=== PATIENT | female | born 1945 | race Caucasian/White ===

== ENCOUNTER 2020-12-05 15:12 | Emergency (ER) | payer MEDICARE, MEDICAID ==
[2020-12-05] MEDS ORDERED: Metoprolol Tartrate 5 MG/5 ML SDV IVPUSH ONE ×3 (15:45→16:51)
--- NOTE | 2020-12-05 16:14 | EDM.PDOC ---
ED HPI GENERAL MEDICAL PROBLEM - General Chief Complaint: Cardiovascular Problem Stated Complaint: HEART PALPITATIONS Time Seen by Provider: 12/05/20 15:32 Source of Information: Reports: Patient, RN Notes Reviewed - History of Present Illness INITIAL COMMENTS - FREE TEXT/NARRATIVE: 75 yr old female comes in with palpitations, mild dizziness at rest and more so when standing. No chest pain or difficulty breathing. No abd pain, nausea or vomiting. Hx Htn. No hx of prior a fib. She does take topral 100 mg XL daily. She did take an extra half tab this afternoon about 5 hrs ago. - Related Data Allergies Allergy/AdvReac Type Severity Reaction Status Date / Time cefuroxime [From Ceftin] Allergy Severe Diarrhea Verified 12/05/20 15:32 Home Meds: Home Meds Albuterol Sulfate [Proair Hfa] 2 puff INH ASDIRECTED 12/05/20 [History] Citalopram Hydrobromide [Celexa] 20 mg PO DAILY 12/05/20 [History] Fluticasone/Salmeterol [Advair 100-50] 1 - 2 puff INH DAILY 12/05/20 [History] Levothyroxine 75 mcg PO DAILY 12/05/20 [History] Metoprolol Succinate [Toprol XL 100mg] 100 mg PO BID #60 tab.er 12/05/20 [Rx] Metoprolol Succinate [Toprol Xl] 100 mg PO DAILY 12/05/20 [History] Nortriptyline 25 mg PO BID 12/05/20 [History] Rivaroxaban [Xarelto] 20 mg PO PCDINNER #30 tablet 12/05/20 [Rx] Past Medical History Cardiovascular History: Reports: Arrhythmia, Other (See Below) Other Cardiovascular History: SVT Respiratory History: Reports: Asthma Gastrointestinal History: Reports: Other (See Below) Other Gastrointestinal History: spleenectomy Psychiatric History: Reports: Depression Endocrine/Metabolic History: Reports: Hypothyroidism - Past Surgical History Female Surgical History: Reports: Hysterectomy Social & Family History - Tobacco Use Tobacco Use Status *Q: Never Tobacco User ED ROS GENERAL - Review of Systems Review Of Systems: See Below Constitutional: Denies: Fever, Chills, Diaphoresis HEENT: Reports: No Symptoms Respiratory: Denies: Shortness of Breath, Pleuritic Chest Pain, Cough Cardiovascular: Reports: Palpitations. Denies: Chest Pain GI/Abdominal: Denies: Abdominal Pain, Nausea, Vomiting Musculoskeletal: Denies: Neck Pain, Shoulder Pain, Arm Pain Skin: Reports: No Symptoms Neurological: Reports: Dizziness. Denies: Numbness, Tingling, Trouble Speaking, Difficulty Walking, Weakness ED EXAM, GENERAL - Physical Exam Exam: See Below General Appearance: Alert, No Apparent Distress Throat/Mouth: Normal Inspection Head: Atraumatic Neck: Supple Respiratory/Chest: No Respiratory Distress, Lungs Clear, Normal Breath Sounds Cardiovascular: Irregularly Irregular GI/Abdominal: Soft, Non-Tender Extremities: Normal Inspection, Normal Range of Motion. No: Pedal Edema, Leg Pa in Neurological: Alert, Oriented, No Motor/Sensory Deficits Skin Exam: Warm, Dry, Normal Color #1 Interpretation EKG Date: 12/05/20 Rhythm: A-Fib Rate (Beats/Min): 117 [place]: Normal P-Wave: Absent QRS: Normal ST-T: Normal (q waves lead III) Course - Vital Signs Last Recorded V/S: Last Vital Signs Temp 97.1 F 12/05/20 15:29 Pulse 120 H 12/05/20 16:52 Resp 20 12/05/20 15:29 BP 159/98 H 12/05/20 16:52 Pulse Ox 97 12/05/20 15:29 - Orders/Labs/Meds Orders: Active Orders 24 hr Category Date Time Status Chest 1V Frontal [CR] Stat Exams 12/05/20 15:45 Taken EKG 12 Lead [EK] Stat Ther 12/05/20 15:43 Ordered Labs: Laboratory Tests 12/05/20 12/05/20 Range/Units 15:35 15:35 WBC 9.84 (3.98-10.04) K/mm3 RBC 4.47 (3.98-5.22) M/mm3 Hgb 13.5 (11.2-15.7) gm/dl Hct 43.0 (34.1-44.9) % MCV 96.2 H (79.4-94.8) fl MCH 30.2 (25.6-32.2) pg MCHC 31.4 L (32.2-35.5) g/dl RDW Std Deviation 48.1 H (36.4-46.3) fL Plt Count 318 (182-369) K/mm3 MPV 11.4 (9.4-12.3) fl Neut % (Auto) 58.2 (34.0-71.1) % Lymph % (Auto) 26.7 (19.3-51.7) % [place] % (Auto) 12.3 (4.7-12.5) % Eos % (Auto) 2.0 (0.7-5.8) Baso % (Auto) 0.6 (0.1-1.2) % Neut # (Auto) 5.72 (1.56-6.13) K/mm3 Lymph # (Auto) 2.63 (1.18-3.74) K/mm3 [place] # (Auto) 1.21 H (0.24-0.36) K/mm3 Eos # (Auto) 0.20 (0.04-0.36) K/mm3 Baso # (Auto) 0.06 (0.01-0.08) K/mm3 Sodium 141 (136-145) mEq/L Potassium 4.3 (3.5-5.1) mEq/L Chloride 102 (98-107) mEq/L Carbon Dioxide 25 (21-32) mEq/L Anion Gap 18.3 H (5-15) BUN 19 H (7-18) mg/dL Creatinine 1.3 H (0.55-1.02) mg/dL Est Cr Clr Drug Dosing 37.87 mL/min Estimated GFR (MDRD) 40 (>60) mL/min BUN/Creatinine Ratio 14.6 (14-18) Glucose 102 (83-115) mg/dL Calcium 9.5 (8.5-10.1) mg/dL Total Bilirubin 0.3 (0.2-1.0) mg/dL AST 25 (15-37) U/L ALT 23 (14-59) U/L Alkaline Phosphatase 81 (46-116) U/L Total Protein 8.1 (6.4-8.2) g/dl Albumin 3.7 (3.4-5.0) g/dl Globulin 4.4 gm/dL Albumin/Globulin Ratio 0.8 L (1-2) Meds: Medications Discontinued Medications Generic Name Dose Route Start Last Admin Trade Name Freq PRN Reason Stop Dose Admin Sodium Chloride 1,000 mls @ 999 mls/hr 12/05/20 16:45 12/05/20 16:49 Normal Saline IV 999 mls/hr ONETIME ARACELIS Administration Metoprolol Tartrate 5 mg/ 55 mls @ 100 mls/hr 12/05/20 16:38 12/05/20 16:54 Sodium Chloride IV 12/05/20 17:10 Not Given ONETIME ONE Metoprolol Tartrate 5 mg 12/05/20 15:45 12/05/20 15:54 Lopressor IVPUSH 12/05/20 15:46 5 mg ONETIME ONE Administration Metoprolol Tartrate 5 mg 12/05/20 16:10 12/05/20 16:18 Lopressor IVPUSH 12/05/20 16:11 5 mg ONETIME ONE Administration Metoprolol Tartrate Confirm 12/05/20 16:45 12/05/20 16:54 Lopressor Administered 12/05/20 16:46 Not Given Dose 5 mg .ROUTE .STK-MED ONE Metoprolol Tartrate 5 mg 12/05/20 16:51 12/05/20 16:52 Lopressor IVPUSH 12/05/20 16:52 5 mg ONETIME ONE Administration - Re-Assessments/Exams Free Text/Narrative Re-Assessment/Exam: 12/06/20 07:54 We did give lopressor 5 mg IV times 2. With that her rate did come down somewhat and mostly in the 90's to low 100's at time of discharge. Will have her take another half tab toprol this evening and than go to 100 mg bid, adjust as needed. Will also start on xarelto. Discharge instr. as documented. 12/06/20 07:55 Departure - Departure Time of Disposition: 17:30 Disposition: Home, Self-Care 01 Condition: Fair Clinical Impression: Atrial fibrillation with RVR Prescriptions: Metoprolol Succinate [Toprol XL 100mg] 100 mg PO BID #60 tab.er Rivaroxaban [Xarelto] 20 mg PO PCDINNER #30 tablet Instructions: Atrial Fibrillation, [id number] Referrals: Hodan Berman PA-C [Primary Care Provider] - Forms: ED Department Discharge Additional Instructions: 1/2 tab 100 mg metropolol this evening, than 100 mg twice daily until further advised. Xarelto 20 daily with your evening meal until further directed. Try check your BP and heart rate 3 to 4 times daily and keep a log of your heart rate (pulse) and BP readings. Follow up clinic early next week for recheck, call for appt. Bring log of your BP and pulse readings with you for that clinic appt. Return to ED as needed. Sepsis Event Note (ED) - Evaluation Sepsis Screening Result: No Definite Risk - My Orders Last 24 Hours: My Active Orders 12/05/20 15:43 EKG 12 Lead [EK] Stat 12/05/20 15:45 Chest 1V Frontal [CR] Stat - Assessment/Plan Last 24 Hours: My Active Orders 12/05/20 15:43 EKG 12 Lead [EK] Stat 12/05/20 15:45 Chest 1V Frontal [CR] Stat
[2020-12-05] MEDS ORDERED: Metoprolol Tartrate 5 MG in Sodium Chloride 0.9% 50 ML IV ONE (16:38)
[2020-12-05] MEDS ORDERED: Metoprolol Tartrate 5 MG/5 ML SDV ONE (16:45)
[2020-12-05] MEDS ORDERED: Sodium Chloride 0.9% 1,000 ML IV SCH (16:45)
--- NOTE | 2020-12-06 11:16 | CR ---
Chest: Portable view of the chest was obtained. Comparison: No previous chest imaging. Enlarged left ventricular cavity is seen. Elevated right hemidiaphragm is noted. Lungs are clear with no acute parenchymal change. No acute osseous finding is seen. Impression: 1. Findings as noted above. 2. Nothing acute is suspected. Diagnostic code #2
== END 2020-12-05 18:00 | disposition home or self-care (01) ==
LOC: JD.ED 15:12
DX: I48.91 Unspecified atrial fibrillation (principal); J45.909 Unspecified asthma, uncomplicated; E03.9 Hypothyroidism, unspecified; Z88.1 Allergy status to other antibiotic agents; Z79.899 Other long term (current) drug therapy; Z79.01 Long term (current) use of anticoagulants
CPT/HCPCS: 36415; 71045; 80053; 85025; 93005; 96374; 96376; 99285; J3490; J7030; 93010; 99284

== ENCOUNTER 2021-02-27 07:45 | Inpatient (IN) | payer MEDICARE, MEDICAID ==
[2021-02-27] MEDS ORDERED: Sodium Chloride 0.9% 10 ML Syringe FLUSH PRN ×2 (08:09→13:59)
[2021-02-27] MEDS ORDERED: Diltiazem 50 MG/10 ML SDV IVPUSH ONE (08:10)
[2021-02-27] MEDS ORDERED: Diltiazem 100 MG in Sodium Chloride 0.9% 100 ML IV SCH (08:15)
[2021-02-27] MEDS ORDERED: Metoprolol Tartrate 50 MG Tab PO ONE (10:00)
[2021-02-27] MEDS ORDERED: Aspirin 81 MG Tab.Chew PO ONE (10:35)
--- NOTE | 2021-02-27 10:43 | EDM.PDOC ---
ED HPI GENERAL MEDICAL PROBLEM - General Chief Complaint: Chest Pain Stated Complaint: CHEST PAIN Time Seen by Provider: 02/27/21 07:59 Source of Information: Reports: Patient History Limitations: Reports: No Limitations - History of Present Illness INITIAL COMMENTS - FREE TEXT/NARRATIVE: The patient presents with chest pain, shortness of breath, and palpitations. She said this all started at 0430. She was diagnosed with A-fib in November. She is on xarelto and metoprolol. 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 She also felt lightheaded. She has no headache, numbness, weakness, fever, chills, cough, abdominal pain, nausea or vomiting. Onset: Gradual Duration: Hour(s): (0430) Location: Reports: Chest Quality: Reports: Ache Severity: Mild Improves with: Reports: None Worsens with: Reports: None Associated Symptoms: Reports: Chest Pain, Shortness of Breath. Denies: Cough, Fever/Chills, Headaches, Nausea/Vomiting Chest Pain Score (Numeric/FACES): 6 - Related Data Allergies Allergy/AdvReac Type Severity Reaction Status Date / Time cefuroxime [From Ceftin] Allergy Severe Diarrhea Verified 02/27/21 07:58 Home Meds: Home Meds Albuterol Sulfate [Proair Hfa] 2 puff INH ASDIRECTED 12/05/20 [History] Citalopram Hydrobromide [Celexa] 20 mg PO DAILY 12/05/20 [History] Fluticasone/Salmeterol [Advair 100-50] 1 - 2 puff INH DAILY 12/05/20 [History] Levothyroxine 75 mcg PO DAILY 12/05/20 [History] Metoprolol Succinate [Toprol XL 100mg] 100 mg PO BID #60 tab.er 12/05/20 [Rx] Nortriptyline 25 mg PO BID 12/05/20 [History] Rivaroxaban [Xarelto] 20 mg PO PCDINNER #30 tablet 12/05/20 [Rx] Past Medical History Cardiovascular History: Reports: Afib, Arrhythmia, Other (See Below) Other Cardiovascular History: SVT Respiratory History: Reports: Asthma Gastrointestinal History: Reports: Other (See Below) Other Gastrointestinal History: spleenectomy Psychiatric History: Reports: Depression Endocrine/Metabolic History: Reports: Hypothyroidism - Past Surgical History Female Surgical History: Reports: Hysterectomy Social & Family History - Tobacco Use Tobacco Use Status *Q: Former Tobacco User Used Tobacco, but Quit: Yes Month/Year Tobacco Last Used: 30+ years ago - Recreational Drug Use Recreational Drug Use: No ED ROS GENERAL - Review of Systems Review Of Systems: See Below Constitutional: Reports: No Symptoms HEENT: Reports: No Symptoms Respiratory: Reports: Shortness of Breath Cardiovascular: Reports: Chest Pain Endocrine: Reports: No Symptoms GI/Abdominal: Reports: No Symptoms : Reports: No Symptoms Musculoskeletal: Reports: No Symptoms ED EXAM, GENERAL - Physical Exam Exam: See Below Exam Limited By: No Limitations General Appearance: Alert, No Apparent Distress Ears: Normal External Exam Nose: Normal Inspection Throat/Mouth: Normal Inspection Head: Atraumatic, Normocephalic Neck: Normal Inspection Respiratory/Chest: No Respiratory Distress, Lungs Clear, Normal Breath Sounds Cardiovascular: No Murmur, Tachycardia, Irregularly Irregular GI/Abdominal: Soft, Non-Tender, No Organomegaly, No Mass Extremities: Normal Inspection #1 Interpretation EKG Date: 02/27/21 Time: 07:56 Rhythm: A-Fib Rate (Beats/Min): 120 [place]: Normal P-Wave: Absent QRS: Normal ST-T: Normal QT: Normal Course - Vital Signs Last Recorded V/S: Last Vital Signs Temp 96.9 F 02/27/21 07:55 Pulse 89 02/27/21 10:07 Resp 24 H 02/27/21 09:37 BP 123/73 02/27/21 10:07 Pulse Ox 93 L 02/27/21 09:37 - Orders/Labs/Meds Orders: Active Orders 24 hr Category Date Time Status Cardiac Monitoring [RC] . DIRECTED Care 02/27/21 08:09 Active EKG Documentation Completion [RC] ASDIRECTED Care 02/27/21 07:52 Active Peripheral IV Care [RC] . DIRECTED Care 02/27/21 08:10 Active Chest 1V Frontal [CR] Stat Exams 02/27/21 08:10 Taken CORONAVIRUS COVID-19 KYA [MOLEC] Stat Lab 02/27/21 10:32 Ordered Diltiazem [Cardizem] 100 mg Med 02/27/21 08:15 Active Sodium Chloride 0.9% [Normal Saline] 100 ml IV TITRATE Sodium Chloride 0.9% [Saline Flush] Med 02/27/21 08:09 Active 10 ml FLUSH ASDIRECTED PRN Peripheral IV Insertion Adult [OM.PC] Stat Oth 02/27/21 08:09 Ordered EKG 12 Lead [EK] Stat Ther 02/27/21 07:52 Ordered Medication Orders Diltiazem HCl 100 mg/ Sodium (Chloride) 100 mls @ 10 mls/hr IV TITRATE ARACELIS; Protocol Last Admin: 02/27/21 08:32 Dose: 10 mg/hr, 10 mls/hr Documented by: LAUREEN Sodium Chloride (Sodium Chloride 0.9% 10 Ml Syringe) 10 ml FLUSH ASDIRECTED PRN PRN Reason: Keep Vein Open Last Admin: 02/27/21 08:36 Dose: 10 ml Documented by: LAUREEN Labs: Laboratory Tests 02/27/21 02/27/21 Range/Units 08:15 08:15 WBC 11.82 H (3.98-10.04) K/mm3 RBC 4.15 (3.98-5.22) M/mm3 Hgb 12.7 (11.2-15.7) gm/dl Hct 40.5 (34.1-44.9) % MCV 97.6 H (79.4-94.8) fl MCH 30.6 (25.6-32.2) pg MCHC 31.4 L (32.2-35.5) g/dl RDW Std Deviation 48.1 H (36.4-46.3) fL Plt Count 268 (182-369) K/mm3 MPV 11.5 (9.4-12.3) fl Neut % (Auto) 70.1 (34.0-71.1) % Lymph % (Auto) 16.8 L (19.3-51.7) % [place] % (Auto) 11.5 (4.7-12.5) % Eos % (Auto) 1.1 (0.7-5.8) Baso % (Auto) 0.3 (0.1-1.2) % Neut # (Auto) 8.29 H (1.56-6.13) K/mm3 Lymph # (Auto) 1.98 (1.18-3.74) K/mm3 [place] # (Auto) 1.36 H (0.24-0.36) K/mm3 Eos # (Auto) 0.13 (0.04-0.36) K/mm3 Baso # (Auto) 0.04 (0.01-0.08) K/mm3 Sodium 139 (136-145) mEq/L Potassium 4.2 (3.5-5.1) mEq/L Chloride 103 (98-107) mEq/L Carbon Dioxide 25 (21-32) mEq/L Anion Gap 15.2 H (5-15) BUN 15 (7-18) mg/dL Creatinine 1.0 (0.55-1.02) mg/dL Est Cr Clr Drug Dosing 47.53 mL/min Estimated GFR (MDRD) 54 (>60) mL/min BUN/Creatinine Ratio 15.0 (14-18) Glucose 125 H (70-99) mg/dL Calcium 9.0 (8.5-10.1) mg/dL Magnesium 1.8 (1.8-2.4) mg/dL Total Bilirubin 0.6 (0.2-1.0) mg/dL AST 19 (15-37) U/L ALT 22 (14-59) U/L Alkaline Phosphatase 75 (46-116) U/L Troponin I < 0.017 (0.00-0.056) ng/mL Total Protein 7.5 (6.4-8.2) g/dl Albumin 3.7 (3.4-5.0) g/dl Globulin 3.8 gm/dL Albumin/Globulin Ratio 1.0 (1-2) Meds: Medications Generic Name Dose Route Start Last Admin Trade Name Freq PRN Reason Stop Dose Admin Diltiazem HCl 100 mg/ Sodium 100 mls @ 10 mls/hr 02/27/21 08:15 02/27/21 08:32 Chloride IV 10 mg/hr TITRATE ARACELIS 10 mls/hr Administration Protocol 10 MG/HR Sodium Chloride 10 ml 02/27/21 08:09 02/27/21 08:36 Sodium Chloride 0.9% 10 Ml Syringe FLUSH 10 ml ASDIRECTED PRN Administration Keep Vein Open Discontinued Medications Generic Name Dose Route Start Last Admin Trade Name Freq PRN Reason Stop Dose Admin Aspirin 324 mg 02/27/21 10:35 Aspirin 81 Mg Tab.Chew PO 02/27/21 10:36 ONETIME ONE Diltiazem HCl 10 mg 02/27/21 08:10 02/27/21 08:32 Diltiazem 50 Mg/10 Ml Sdv IVPUSH 02/27/21 08:11 10 mg ONETIME ONE Administration Metoprolol Tartrate 50 mg 02/27/21 10:00 02/27/21 10:07 Metoprolol Tartrate 50 Mg Tab PO 02/27/21 10:01 50 mg ONETIME ONE Administration - Re-Assessments/Exams Free Text/Narrative Re-Assessment/Exam: 02/27/21 10:40 I ordered an IV saline lock, aspirin, cardizem bolus 10mg IV, drip 10mg/hr IV, EKG, CXR, and labs. Her EKG confirms A-rib with RVR at 120. She would go up as high as 140s at times. Her CXR looks good. Her WBC was a little elevated at 1 1.82. Her CMP looks good. Her troponin was negative. Her rate decreased to just below 100. I had my nurse stop the drip and gave her metoprolol 50mg PO. After awhile her rate went over 100 and would go to 120s at times. I started the drip again and ordered a COVID 19. I feel she needs to be admitted. 02/27/21 10:[address] No and he agreed to the admission. Departure - Departure Time of Disposition: 10:45 Disposition: Admitted As Inpatient 64 Condition: Fair Clinical Impression: Atrial fibrillation with RVR, Atypical chest pain Referrals: Hodan Berman PA-C [Primary Care Provider] - Sepsis Event Note (ED) - Evaluation Sepsis Screening Result: No Definite Risk - Focused Exam Vital Signs: Vital Signs Temp Pulse Pulse Resp BP BP Pulse Ox 02/27/21 10:07 89 123/73 02/27/21 09:37 85 24 H 120/76 93 L 02/27/21 08:56 85 16 119/64 93 L 02/27/21 07:55 96.9 F 118 H 20 152/110 H 98 - My Orders Last 24 Hours: My Active Orders 02/27/21 07:52 EKG Documentation Completion [RC] ASDIRECTED EKG 12 Lead [EK] Stat 02/27/21 08:09 Cardiac Monitoring [RC] . DIRECTED Sodium Chloride 0.9% [Saline Flush] 10 ml FLUSH ASDIRECTED PRN Peripheral IV Insertion Adult [OM.PC] Stat 02/27/21 08:10 Peripheral IV Care [RC] . DIRECTED Chest 1V Frontal [CR] Stat 02/27/21 08:15 Diltiazem [Cardizem] 100 mg Sodium Chloride 0.9% [Normal Saline] 100 ml IV TITRATE 02/27/21 10:32 CORONAVIRUS COVID-19 KYA [MOLEC] Stat - Assessment/Plan Last 24 Hours: My Active Orders 02/27/21 07:52 EKG Documentation Completion [RC] ASDIRECTED EKG 12 Lead [EK] Stat 02/27/21 08:09 Cardiac Monitoring [RC] . DIRECTED Sodium Chloride 0.9% [Saline Flush] 10 ml FLUSH ASDIRECTED PRN Peripheral IV Insertion Adult [OM.PC] Stat 02/27/21 08:10 Peripheral IV Care [RC] . DIRECTED Chest 1V Frontal [CR] Stat 02/27/21 08:15 Diltiazem [Cardizem] 100 mg Sodium Chloride 0.9% [Normal Saline] 100 ml IV TITRATE 02/27/21 10:32 CORONAVIRUS COVID-19 KYA [MOLEC] Stat
[2021-02-27 13:13] LABS: HEMOGLOBIN A1C 6.3 %
[2021-02-27] MEDS ORDERED: Diltiazem 180 MG Cap.CD PO ONE (13:49)
--- NOTE | 2021-02-27 13:49 | PCM.HP.2 ---
H&P History of Present Illness - General Date of Service: 02/27/21 Admit Problem/Dx: Admission Diagnosis/Problem Admission Diagnosis/Problem Atrial fibrillation Source of Information: Patient, Provider History Limitations: Reports: No Limitations - History of Present Illness Initial Comments - Free Text/Narative: 02/27/21 75 year old female with onset left precordial chest discomfort around 4 am asoc. with irreg. heart rate and sob. she felt no better after 2 hours and came to e.r. and found to be in afib with rvr and started on cardizem drip . currently treated with beta kiel and has not seen cardiology. onset in feb and echo shows mild mr, mild ar, and mild tr with mild elavation of rt pressures and lae. ekg unchanged form feb. in afib rate 112, no sign st t wave changes and no injury patterns. kira illness or hyperthyroid symptoms . no recent uri resp symptoms other than saucedo .mild edema and restricts salt. hx of hypertension and fairly controlled. hx of asthma (on inhalers ). hx of hypothyroidism on replacement and compliant otherwise healthy but mod. sedentary Onset of Symptoms: Reports: Today Symptom Onset Date: 02/27/21 Symptom Onset Time: 04:00 Duration of Symptoms: Reports: Hour(s): (8) Location: Reports: Chest Quality: Reports: Other (mild pain with deep breathe) Improves with: Reports: None Worsens with: Reports: None Associated Symptoms: Reports: Chest Pain, Shortness of Breath. Denies: Confusion, Cough, Diaphoresis, Nausea/Vomiting, Syncope Chest Pain Score (Numeric/FACES): 6 - Related Data Allergies/Adverse Reactions: Allergies Allergy/AdvReac Type Severity Reaction Status Date / Time cefuroxime [From Ceftin] Allergy Severe Diarrhea Verified 02/27/21 07:58 Home Medications: Home Meds Albuterol Sulfate [Proair Hfa] 2 puff INH ASDIRECTED 12/05/20 [History] Citalopram Hydrobromide [Celexa] 20 mg PO DAILY 12/05/20 [History] Fluticasone/Salmeterol [Advair 100-50] 1 - 2 puff INH DAILY 12/05/20 [History] Levothyroxine 75 mcg PO DAILY 12/05/20 [History] Metoprolol Succinate [Toprol XL 100mg] 100 mg PO BID #60 tab.er 12/05/20 [Rx] Nortriptyline 25 mg PO BID 12/05/20 [History] Rivaroxaban [Xarelto] 20 mg PO PCDINNER #30 tablet 12/05/20 [Rx] Past Medical History HEENT History: Reports: Other (See Below) (snoring) Cardiovascular History: Reports: Afib, Arrhythmia, Heart Murmur, SOB on Exertion, Other (See Below). Denies: Bacterial Endocarditis, Blood Clots/VTE/DVT, CAD, Cardiomyopathy, Congenital Septal Defect, Heart Failure, Syncope Other Cardiovascular History: SVT Respiratory History: Reports: Asthma Gastrointestinal History: Reports: Other (See Below) Other Gastrointestinal History: spleenectomy [employer] History: Reports: None Musculoskeletal History: Reports: None Psychiatric History: Reports: Depression Endocrine/Metabolic History: Reports: None, Hypothyroidism - Past Surgical History Female Surgical History: Reports: Hysterectomy Social & Family History - Family History Family Medical History: No Pertinent Family History - Tobacco Use Tobacco Use Status *Q: Former Tobacco User Used Tobacco, but Quit: Yes Month/Year Tobacco Last Used: 30+ years ago - Recreational Drug Use Recreational Drug Use: No H&P Review of Systems - Review of Systems: Review Of Systems: See Below General: Reports: No Symptoms HEENT: Reports: No Symptoms Pulmonary: Reports: No Symptoms, Shortness of Breath Cardiovascular: Reports: Chest Pain, Palpitations, Dyspnea on Exertion Gastrointestinal: Reports: No Symptoms Genitourinary: Reports: No Symptoms Musculoskeletal: Reports: No Symptoms Skin: Reports: No Symptoms Psychiatric: Reports: No Symptoms, Depression Neurological: Reports: No Symptoms Hematologic/Lymphatic: Reports: No Symptoms Immunologic: Reports: No Symptoms Exam - Exam Exam: See Below - Vital Signs Vital Signs: Last Vital Signs Temp 36.1 C 02/27/21 07:55 Pulse 89 02/27/21 11:34 Resp 20 02/27/21 11:34 BP 119/77 02/27/21 11:34 Pulse Ox 95 02/27/21 11:34 Weight: 94.619 kg - Exam General: Alert, Oriented, 4 HEENT: PERRLA, Hearing Intact, Mucosa Moist & [place], Nares Patent, Normal Nasal Septum, Posterior Pharynx Clear, Conjunctiva Clear, EOMI, EACs Clear, TMs Clear Neck: Supple, Trachea Midline, 2 Lungs: Clear to Auscultation, Normal Respiratory Effort Cardiovascular: Regular Rate, Regular Rhythm, Irregular Rhythm, Systolic Murmur (10/21) GI/Abdominal Exam: Normal Bowel Sounds, Soft, Non-Tender, No Organomegaly, No Distention, No Abnormal Bruit, No Mass, Pelvis Stable (Female) Exam: Normal External Exam, Normal Speculum Exam, Normal Bimanual Ex am Rectal (Female) Exam: Normal Exam, Normal Rectal Tone Back Exam: Normal Inspection, Full Range of Motion, NT Extremities: Normal Inspection, Normal Range of Motion, Non-Tender, No Pedal Edema, Normal Capillary Refill Skin: Warm, Dry, Intact Neurological: Cranial Nerves Intact, Reflexes Equal Bilateral Neuro Extensive - Mental Status: Alert, Oriented x3, Normal Mood/Affect, Normal Cognition Neuro Extensive - Motor, Sensory, Reflexes: CN II-XII Intact, Normal Gait, Normal Reflexes Psychiatric: Alert, Normal Affect, Normal Mood - Patient Data Lab Results Last 24 hrs: Laboratory Results - last 24 hr 02/27/21 02/27/21 02/27/21 Range/Units 08:15 08:15 10:35 WBC 11.82 H (3.98-10.04) K/mm3 RBC 4.15 (3.98-5.22) M/mm3 Hgb 12.7 (11.2-15.7) gm/dl Hct 40.5 (34.1-44.9) % MCV 97.6 H (79.4-94.8) fl MCH 30.6 (25.6-32.2) pg MCHC 31.4 L (32.2-35.5) g/dl RDW Std Deviation 48.1 H (36.4-46.3) fL Plt Count 268 (182-369) K/mm3 MPV 11.5 (9.4-12.3) fl Neut % (Auto) 70.1 (34.0-71.1) % Lymph % (Auto) 16.8 L (19.3-51.7) % Terry % (Auto) 11.5 (4.7-12.5) % Eos % (Auto) 1.1 (0.7-5.8) Baso % (Auto) 0.3 (0.1-1.2) % Neut # (Auto) 8.29 H (1.56-6.13) K/mm3 Lymph # (Auto) 1.98 (1.18-3.74) K/mm3 Terry # (Auto) 1.36 H (0.24-0.36) K/mm3 Eos # (Auto) 0.13 (0.04-0.36) K/mm3 Baso # (Auto) 0.04 (0.01-0.08) K/mm3 PT (9.7-12.0) SECONDS INR APTT (21.7-31.4) SECONDS D-Dimer, Quantitative (0.19-0.50) mg/L Sodium 139 (136-145) mEq/L Potassium 4.2 (3.5-5.1) mEq/L Chloride 103 (98-107) mEq/L Carbon Dioxide 25 (21-32) mEq/L Anion Gap 15.2 H (5-15) BUN 15 (7-18) mg/dL Creatinine 1.0 (0.55-1.02) mg/dL Est Cr Clr Drug Dosing 47.53 mL/min Estimated GFR (MDRD) 54 (>60) mL/min BUN/Creatinine Ratio 15.0 (14-18) Glucose 125 H (70-99) mg/dL Calcium 9.0 (8.5-10.1) mg/dL Magnesium 1.8 (1.8-2.4) mg/dL Total Bilirubin 0.6 (0.2-1.0) mg/dL AST 19 (15-37) U/L ALT 22 (14-59) U/L Alkaline Phosphatase 75 (46-116) U/L Troponin I < 0.017 (0.00-0.056) ng/mL Total Protein 7.5 (6.4-8.2) g/dl Albumin 3.7 (3.4-5.0) g/dl Globulin 3.8 gm/dL Albumin/Globulin Ratio 1.0 (1-2) SARS-CoV-2 RNA ([facility]) Negative (NEGATIVE) 02/27/21 Range/Units 13:02 WBC (3.98-10.04) K/mm3 RBC (3.98-5.22) M/mm3 Hgb (11.2-15.7) gm/dl Hct (34.1-44.9) % MCV (79.4-94.8) fl MCH (25.6-32.2) pg MCHC (32.2-35.5) g/dl RDW Std Deviation (36.4-46.3) fL Plt Count (182-369) K/mm3 MPV (9.4-12.3) fl Neut % (Auto) (34.0-71.1) % Lymph % (Auto) (19.3-51.7) % Terry % (Auto) (4.7-12.5) % Eos % (Auto) (0.7-5.8) Baso % (Auto) (0.1-1.2) % Neut # (Auto) (1.56-6.13) K/mm3 Lymph # (Auto) (1.18-3.74) K/mm3 Terry # (Auto) (0.24-0.36) K/mm3 Eos # (Auto) (0.04-0.36) K/mm3 Baso # (Auto) (0.01-0.08) K/mm3 PT 12.9 H (9.7-12.0) SECONDS INR 1.21 APTT 34.2 H (21.7-31.4) SECONDS D-Dimer, Quantitative 0.27 (0.19-0.50) mg/L Sodium (136-145) mEq/L Potassium (3.5-5.1) mEq/L Chloride (98-107) mEq/L Carbon Dioxide (21-32) mEq/L Anion Gap (5-15) BUN (7-18) mg/dL Creatinine (0.55-1.02) mg/dL Est Cr Clr Drug Dosing mL/min Estimated GFR (MDRD) (>60) mL/min BUN/Creatinine Ratio (14-18) Glucose (70-99) mg/dL Calcium (8.5-10.1) mg/dL Magnesium (1.8-2.4) mg/dL Total Bilirubin (0.2-1.0) mg/dL AST (15-37) U/L ALT (14-59) U/L Alkaline Phosphatase (46-116) U/L Troponin I (0.00-0.056) ng/mL Total Protein (6.4-8.2) g/dl Albumin (3.4-5.0) g/dl Globulin gm/dL Albumin/Globulin Ratio (1-2) SARS-CoV-2 RNA ([facility]) (NEGATIVE) Result Diagrams: 02/27/21 08:15 02/27/21 08:15 Sepsis Event Note - Evaluation Sepsis Screening Result: No Definite Risk - Focused Exam Vital Signs: Vital Signs Temp Pulse Pulse Resp BP BP Pulse Ox 02/27/21 11:34 89 20 119/77 95 02/27/21 10:30 97 23 H 132/94 H 94 L 02/27/21 10:07 89 123/73 02/27/21 09:37 85 24 H 120/76 93 L 02/27/21 08:56 85 16 119/64 93 L 02/27/21 07:55 36.1 C 118 H 20 152/110 H 98 Problem List Initiated/Reviewed/Updated: Yes Orders Last 24hrs: Active Orders 24 hr Category Date Time Status Admission Status [Patient Status] [ADT] Routine ADT 02/27/21 10:57 Active Cardiac Monitoring [RC] . DIRECTED Care 02/27/21 08:09 Active EKG Documentation Completion [RC] ASDIRECTED Care 02/27/21 07:52 Active Peripheral IV Care [RC] . DIRECTED Care 02/27/21 08:10 Active Heart Healthy Diet [DIET] Diet 02/27/21 Lunch Active Chest 1V Frontal [CR] Stat Exams 02/27/21 08:10 Taken A1C [GLYCOSYLATED HEMOGLOBIN,HGBA1C] [CHEM] Routine Lab 02/27/21 08:15 Received CKMB [CHEM] Routine Lab 02/27/21 13:02 Received LIPID PANEL [CHEM] Routine Lab 02/27/21 13:02 Received TROPONIN I [CHEM] Routine Lab 02/27/21 13:02 Received TSH [CHEM] Routine Lab 02/27/21 13:02 Received Diltiazem [Cardizem] 100 mg Med 02/27/21 08:15 Active Sodium Chloride 0.9% [Normal Saline] 100 ml IV TITRATE Sodium Chloride 0.9% [Saline Flush] Med 02/27/21 08:09 Active 10 ml FLUSH ASDIRECTED PRN Peripheral IV Insertion Adult [OM.PC] Stat Oth 02/27/21 08:09 Ordered Resuscitation Status Routine Resus Stat 02/27/21 12:11 Ordered EKG 12 Lead [EK] Stat Ther 02/27/21 07:52 Ordered Medication Orders Diltiazem HCl 100 mg/ Sodium (Chloride) 100 mls @ 10 mls/hr IV TITRATE ARACELIS; Protocol Last Titration: 02/27/21 10:42 Dose: 10 mg/hr, 10 mls/hr Documented by: Admin: 02/27/21 08:32 Dose: 10 mg/hr, 10 mls/hr Documented by: LAUREEN Sodium Chloride (Sodium Chloride 0.9% 10 Ml Syringe) 10 ml FLUSH ASDIRECTED PRN PRN Reason: Keep Vein Open Last Admin: 02/27/21 08:36 Dose: 10 ml Documented by: LAUREEN Assessment/Plan Comment:: 02/27/21 assess;plan 1)afib rvr; on cardizem drip and starting oral cardizem and weanoff drip/ repeat tsh and a1c with repeat trop x one. symptoms of atypical chest pain seem more musculoskel than true pleurasy or angina 2)hypertensive cv/heart disease monitor b.p . check nt bnp 3)rule out p.e. atypical 4)control asthma tolerates beta kiel and asthma may be mild copd as ex smoker. 5)rule out non stemi ami boh - Mortality Measure Prognosis:: Good
[2021-02-27] MEDS ORDERED: Albuterol 6.7 GM Inhaler INH SCH (14:15)
[2021-02-27] MEDS ORDERED: Albuterol 6.7 GM Inhaler INH PRN (17:12)
[2021-02-27] MEDS ORDERED: Rivaroxaban 10 MG Tab PO SCH (19:00)
[2021-02-27] MEDS: Metoprolol Succinate 50 MG Tab.ER PO SCH (20:38)
[2021-02-27] MEDS: Nortriptyline 25 MG Cap PO SCH (20:38)
[2021-02-28] MEDS ORDERED: Levothyroxine 75 MCG Tab PO SCH (06:00)
[2021-02-28] MEDS: Nortriptyline 25 MG Cap PO SCH (08:28)
[2021-02-28] MEDS: Metoprolol Succinate 50 MG Tab.ER PO SCH (08:28)
[2021-02-28] MEDS ORDERED: Citalopram 10 MG Tab PO SCH (09:00)
[2021-02-28] MEDS ORDERED: Citalopram 20 MG Tab PO SCH (09:00)
--- NOTE | 2021-02-28 13:35 | PCM.DCSUM1 ---
Discharge Summary - Hospital Course Free Text/Narrative:: 02/28/21 stable night and heart rate off card. drip x 12 hours . no chest pain ,stable resp status and normal labs trop and d dimer. p.e. normal . b.p stable with standing and walking. ready for dc and will follow up with DR Lorenzo in 2 weeks boh HPI Initial Comments: Dominik LIVE Admission History & Physical Patient Name: ESDRAS ALMENDAREZ Date of : 1945 Patient Status: Inpatient Attending Provider: Osiel Bernardo Date: 02/27/21 13:40 Initialization Date: 02/27/21 13:40 H&P History of Present Illness - General Date of Service: 02/27/21 Admit Problem/Dx: Admission Diagnosis/Problem Admission Diagnosis/Problem Atrial fibrillation Source of Information: Patient, Provider History Limitations: Reports: No Limitations - History of Present Illness Initial Comments - Free Text/Narative: 02/27/21 75 year old female with onset left precordial chest discomfort around 4 am asoc. with irreg. heart rate and sob. she felt no better after 2 hours and came to e.r. and found to be in afib with rvr and started on cardizem drip . currently treated with beta kiel and has not seen cardiology. onset in feb and echo shows mild mr, mild ar, and mild tr with mild elavation of rt pressures and lae. ekg unchanged form feb. in afib rate 112, no sign st t wave changes and no injury patterns. kira illness or hyperthyroid symptoms . no recent uri resp symptoms other than saucedo .mild edema and restricts salt. hx of hypertension and fairly controlled. hx of asthma (on inhalers ). hx of hypothyroidism on replacement and compliant otherwise healthy but mod. sedentary Onset of Symptoms: Reports: Today Symptom Onset Date: 02/27/21 Symptom Onset Time: 04:00 Duration of Symptoms: Reports: Hour(s): (8) Location: Reports: Chest Quality: Reports: Other (mild pain with deep breathe) Improves with: Reports: None Worsens with: Reports: None Associated Symptoms: Reports: Chest Pain, Shortness of Breath. Denies: Confusion, Cough, Diaphoresis, Nausea/Vomiting, Syncope Chest Pain Score (Numeric/FACES): 6 - Related Data Allergies/Adverse Reactions: Allergies Allergy/AdvReac Type Severity Reaction Status Date / Time cefuroxime [From Ceftin] Allergy Severe Diarrhea Verified 02/27/21 07:58 Home Medications: Home Meds Albuterol Sulfate [Proair Hfa] 2 puff INH ASDIRECTED 12/05/20 [History] Citalopram Hydrobromide [Celexa] 20 mg PO DAILY 12/05/20 [History] Fluticasone/Salmeterol [Advair 100-50] 1 - 2 puff INH DAILY 12/05/20 [History] Levothyroxine 75 mcg PO DAILY 12/05/20 [History] Metoprolol Succinate [Toprol XL 100mg] 100 mg PO BID #60 tab.er 12/05/20 [Rx] Nortriptyline 25 mg PO BID 12/05/20 [History] Rivaroxaban [Xarelto] 20 mg PO PCDINNER #30 tablet 12/05/20 [Rx] Past Medical History HEENT History: Reports: Other (See Below) (snoring) Cardiovascular History: Reports: Afib, Arrhythmia, Heart Murmur, SOB on Exertion, Other (See Below). 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 History: Reports: None Psychiatric History: Reports: Depression Endocrine/Metabolic History: Reports: None, Hypothyroidism - Past Surgical History Female Surgical History: Reports: Hysterectomy Social & Family History - Family History Family Medical History: No Pertinent Family History - Tobacco Use Tobacco Use Status *Q: Former Tobacco User Used Tobacco, but Quit: Yes Month/Year Tobacco Last Used: 30+ years ago - Recreational Drug Use Recreational Drug Use: No H&P Review of Systems - Review of Systems: Review Of Systems: See Below General: Reports: No Symptoms HEENT: Reports: No Symptoms Pulmonary: Reports: No Symptoms, Shortness of Breath Cardiovascular: Reports: Chest Pain, Palpitations, Dyspnea on Exertion Gastrointestinal: Reports: No Symptoms Genitourinary: Reports: No Symptoms Musculoskeletal: Reports: No Symptoms Skin: Reports: No Symptoms Psychiatric: Reports: No Symptoms, Depression Neurological: Reports: No Symptoms Hematologic/Lymphatic: Reports: No Symptoms Immunologic: Reports: No Symptoms Exam - Exam Exam: See Below - Vital Signs Vital Signs: Last Vital Signs Temp 36.1 C 02/27/21 07:55 Pulse 89 02/27/21 11:34 Resp 20 02/27/21 11:34 BP 119/77 02/27/21 11:34 Pulse Ox 95 02/27/21 11:34 Weight: 94.619 kg - Exam General: Alert, Oriented, 4 HEENT: PERRLA, Hearing Intact, Mucosa Moist & Welch, Nares Patent, Normal Nasal Septum, Posterior Pharynx Clear, Conjunctiva Clear, EOMI, EACs Clear, TMs Clear Neck: Supple, Trachea Midline, 2 Lungs: Clear to Auscultation, Normal Respiratory Effort Cardiovascular: Regular Rate, Regular Rhythm, Irregular Rhythm, Systolic Murmur (10/21) GI/Abdominal Exam: Normal Bowel Sounds, Soft, Non-Tender, No Organomegaly, No Distention, No Abnormal Bruit, No Mass, Pelvis Stable (Female) Exam: Normal External Exam, Normal Speculum Exam, Normal Bimanual Exam Rectal (Female) Exam: Normal Exam, Normal Rectal Tone Back Exam: Normal Inspection, Full Range of Motion, NT Extremities: Normal Inspection, Normal Range of Motion, Non-Tender, No Pedal Edema, Normal Capillary Refill Skin: Warm, Dry, Intact Neurological: Cranial Nerves Intact, Reflexes Equal Bilateral Neuro Extensive - Mental Status: Alert, Oriented x3, Normal Mood/Affect, Normal Cognition Neuro Extensive - Motor, Sensory, Reflexes: CN II-XII Intact, Normal Gait, Normal Reflexes Psychiatric: Alert, Normal Affect, Normal Mood - Patient Data Lab Results Last 24 hrs: Laboratory Results - last 24 hr 02/27/21 02/27/21 02/27/21 Range/Units 08:15 08:15 10:35 WBC 11.82 H (3.98-10.04) K/mm3 RBC 4.15 (3.98-5.22) M/mm3 Hgb 12.7 (11.2-15.7) gm/dl Hct 40.5 (34.1-44.9) % MCV 97.6 H (79.4-94.8) fl MCH 30.6 (25.6-32.2) pg MCHC 31.4 L (32.2-35.5) g/dl RDW Std Deviation 48.1 H (36.4-46.3) fL Plt Count 268 (182-369) K/mm3 MPV 11.5 (9.4-12.3) fl Neut % (Auto) 70.1 (34.0-71.1) % Lymph % (Auto) 16.8 L (19.3-51.7) % [place] % (Auto) 11.5 (4.7-12.5) % Eos % (Auto) 1.1 (0.7-5.8) Baso % (Auto) 0.3 (0.1-1.2) % Neut # (Auto) 8.29 H (1.56-6.13) K/mm3 Lymph # (Auto) 1.98 (1.18-3.74) K/mm3 [place] # (Auto) 1.36 H (0.24-0.36) K/mm3 Eos # (Auto) 0.13 (0.04-0.36) K/mm3 Baso # (Auto) 0.04 (0.01-0.08) K/mm3 PT (9.7-12.0) SECONDS INR APTT (21.7-31.4) SECONDS D-Dimer, Quantitative (0.19-0.50) mg/L Sodium 139 (136-145) mEq/L Potassium 4.2 (3.5-5.1) mEq/L Chloride 103 (98-107) mEq/L Carbon Dioxide 25 (21-32) mEq/L Anion Gap 15.2 H (5-15) BUN 15 (7-18) mg/dL Creatinine 1.0 (0.55-1.02) mg/dL Est Cr Clr Drug Dosing 47.53 mL/min Estimated GFR (MDRD) 54 (>60) mL/min BUN/Creatinine Ratio 15.0 (14-18) Glucose 125 H (70-99) mg/dL Calcium 9.0 (8.5-10.1) mg/dL Magnesium 1.8 (1.8-2.4) mg/dL Total Bilirubin 0.6 (0.2-1.0) mg/dL AST 19 (15-37) U/L ALT 22 (14-59) U/L Alkaline Phosphatase 75 (46-116) U/L Troponin I < 0.017 (0.00-0.056) ng/mL Total Protein 7.5 (6.4-8.2) g/dl Albumin 3.7 (3.4-5.0) g/dl Globulin 3.8 gm/dL Albumin/Globulin Ratio 1.0 (1-2) SARS-CoV-2 RNA (KYA) Negative (NEGATIVE) 02/27/21 Range/Units 13:02 WBC (3.98-10.04) K/mm3 RBC (3.98-5.22) M/mm3 Hgb (11.2-15.7) gm/dl Hct (34.1-44.9) % MCV (79.4-94.8) fl MCH (25.6-32.2) pg MCHC (32.2-35.5) g/dl RDW Std Deviation (36.4-46.3) fL Plt Count (182-369) K/mm3 MPV (9.4-12.3) fl Neut % (Auto) (34.0-71.1) % Lymph % (Auto) (19.3-51.7) % [place] % (Auto) (4.7-12.5) % Eos % (Auto) (0.7-5.8) Baso % (Auto) (0.1-1.2) % Neut # (Auto) (1.56-6.13) K/mm3 Lymph # (Auto) (1.18-3.74) K/mm3 [place] # (Auto) (0.24-0.36) K/mm3 Eos # (Auto) (0.04-0.36) K/mm3 Baso # (Auto) (0.01-0.08) K/mm3 PT 12.9 H (9.7-12.0) SECONDS INR 1.21 APTT 34.2 H (21.7-31.4) SECONDS D-Dimer, Quantitative 0.27 (0.19-0.50) mg/L Sodium (136-145) mEq/L Potassium (3.5-5.1) mEq/L Chloride (98-107) mEq/L Carbon Dioxide (21-32) mEq/L Anion Gap (5-15) BUN (7-18) mg/dL Creatinine (0.55-1.02) mg/dL Est Cr Clr Drug Dosing mL/min Estimated GFR (MDRD) (>60) mL/min BUN/Creatinine Ratio (14-18) Glucose (70-99) mg/dL Calcium (8.5-10.1) mg/dL Magnesium (1.8-2.4) mg/dL Total Bilirubin (0.2-1.0) mg/dL AST (15-37) U/L ALT (14-59) U/L Alkaline Phosphatase (46-116) U/L Troponin I (0.00-0.056) ng/mL Total Protein (6.4-8.2) g/dl Albumin (3.4-5.0) g/dl Globulin gm/dL Albumin/Globulin Ratio (1-2) SARS-CoV-2 RNA (KYA) (NEGATIVE) Result Diagrams: 02/27/21 08:15 02/27/21 08:15 Sepsis Event Note - Evaluation Sepsis Screening Result: No Definite Risk - Focused Exam Vital Signs: Vital Signs Temp Pulse Pulse Resp BP BP Pulse Ox 02/27/21 11:34 89 20 119/77 95 02/27/21 10:30 97 23 H 132/94 H 94 L 02/27/21 10:07 89 123/73 02/27/21 09:37 85 24 H 120/76 93 L 02/27/21 08:56 85 16 119/64 93 L 02/27/21 07:55 36.1 C 118 H 20 152/110 H 98 Problem List Initiated/Reviewed/Updated: Yes Orders Last 24hrs: Active Orders 24 hr Category Date Time Status Admission Status [Patient Status] [ADT] Routine ADT 02/27/21 10:57 Active Cardiac Monitoring [RC] . DIRECTED Care 02/27/21 08:09 Active EKG Documentation Completion [RC] ASDIRECTED Care 02/27/21 07:52 Active Peripheral IV Care [RC] . DIRECTED Care 02/27/21 08:10 Active Heart Healthy Diet [DIET] Diet 02/27/21 Lunch Active Chest 1V Frontal [CR] Stat Exams 02/27/21 08:10 Taken A1C [GLYCOSYLATED HEMOGLOBIN,HGBA1C] [CHEM] Routine Lab 02/27/21 08:15 Received CKMB [CHEM] Routine Lab 02/27/21 13:02 Received LIPID PANEL [CHEM] Routine Lab 02/27/21 13:02 Received TROPONIN I [CHEM] Routine Lab 02/27/21 13:02 Received TSH [CHEM] Routine Lab 02/27/21 13:02 Received Diltiazem [Cardizem] 100 mg Med 02/27/21 08:15 Active Sodium Chloride 0.9% [Normal Saline] 100 ml IV TITRATE Sodium Chloride 0.9% [Saline Flush] Med 02/27/21 08:09 Active 10 ml FLUSH ASDIRECTED PRN Peripheral IV Insertion Adult [OM.PC] Stat Oth 02/27/21 08:09 Ordered Resuscitation Status Routine Resus Stat 02/27/21 12:11 Ordered EKG 12 Lead [EK] Stat Ther 02/27/21 07:52 Ordered Medication Orders Diltiazem HCl 100 mg/ Sodium (Chloride) 100 mls @ 10 mls/hr IV TITRATE ARACELIS; Protocol Last Titration: 02/27/21 10:42 Dose: 10 mg/hr, 10 mls/hr Documented by: Admin: 02/27/21 08:32 Dose: 10 mg/hr, 10 mls/hr Documented by: LAUREEN Sodium Chloride (Sodium Chloride 0.9% 10 Ml Syringe) 10 ml FLUSH ASDIRECTED PRN PRN Reason: Keep Vein Open Last Admin: 02/27/21 08:36 Dose: 10 ml Documented by: LAUREEN Assessment/Plan Comment:: 02/27/21 assess;plan 1)afib rvr; on cardizem drip and starting oral cardizem and weanoff drip/ repeat tsh and a1c with repeat trop x one. symptoms of atypical chest pain seem more musculoskel than true pleurasy or angina 2)hypertensive cv/heart disease monitor b.p . check nt bnp 3)rule out p.e. atypical 4)control asthma tolerates beta kiel and asthma may be mild copd as ex smoker. 5)rule out non stemi ami boh - Mortality Measure Prognosis:: Good Brief History: rate controlled drip stopped / on oral diltiazem e.r and tolerating well - Discharge Data Discharge Date: 02/28/21 Discharge Disposition: Home, Self-Care 01 Condition: Good - Referral to Home Health Primary Care Physician: Hodan Berman PA-C - Patient Instructions Activity: As Tolerated Driving: Do Not Drive Showering/Bathing: May Shower Other/Special Instructions: if return of rapid heart rate call for additional instructions - Discharge Plan *PRESCRIPTION DRUG MONITORING PROGRAM REVIEWED*: No *COPY OF PRESCRIPTION DRUG MONITORING REPORT IN PATIENT MARJAN: No Prescriptions/Med Rec: dilTIAZem HCL [Diltiazem ER] 120 mg PO DAILY #60 capsule.er Metoprolol Succinate [Toprol XL 100mg] 100 mg PO BID #60 tab.er Home Medications: Home Meds Citalopram Hydrobromide [Celexa] 10 mg PO DAILY 12/05/20 [History] Fluticasone/Salmeterol [Advair 100-50] 1 - 2 puff INH DAILY 12/05/20 [History] Levothyroxine 75 mcg PO DAILY 12/05/20 [History] Nortriptyline 25 mg PO BID 12/05/20 [History] Rivaroxaban [Xarelto] 20 mg PO PCDINNER #30 tablet 12/05/20 [Rx] Citalopram [Citalopram HBr] 10 mg PO DAILY tablet 02/28/21 [Rx] Metoprolol Succinate [Toprol XL 100mg] 100 mg PO BID #60 tab.er 02/28/21 [Rx] dilTIAZem HCL [Diltiazem ER] 120 mg PO DAILY #60 capsule.er 02/28/21 [Rx] Oxygen Therapy Mode: Room Air Forms: ED Department Discharge Referrals: Hodan Berman PA-C [Primary Care Provider] - - Discharge Summary/Plan Comment DC Time >30 min.: No - General Info Date of Service: 02/28/21 Admission Dx/Problem (Free Text: Admission Diagnosis/Problem Admission Diagnosis/Problem Atrial fibrillation Subjective Update: Dominik LIVE Admission History & Physical Patient Name: ESDRAS ALMENDAREZ Date of : 1945 Patient Status: Inpatient Attending Provider: Osiel Bernardo Date: 02/27/21 13:40 Initialization Date: 02/27/21 13:40 H&P History of Present Illness - General Date of Service: 02/27/21 Admit Problem/Dx: Admission Diagnosis/Problem Admission Diagnosis/Problem Atrial fibrillation Source of Information: Patient, Provider History Limitations: Reports: No Limitations - History of Present Illness Initial Comments - Free Text/Narative: 02/27/21 75 year old female with onset left precordial chest discomfort around 4 am asoc. with irreg. heart rate and sob. she felt no better after 2 hours and came to e.r. and found to be in afib with rvr and started on cardizem drip . currently treated with beta kiel and has not seen cardiology. onset in feb and echo shows mild mr, mild ar, and mild tr with mild elavation of rt pressures and lae. ekg unchanged form feb. in afib rate 112, no sign st t wave changes and no injury patterns. kira illness or hyperthyroid symptoms . no recent uri resp symptoms other than saucedo .mild edema and restricts salt. hx of hypertension and fairly controlled. hx of asthma (on inhalers ). hx of hypothyroidism on replacement and compliant otherwise healthy but mod. sedentary Onset of Symptoms: Reports: Today Symptom Onset Date: 02/27/21 Symptom Onset Time: 04:00 Duration of Symptoms: Reports: Hour(s): (8) Location: Reports: Chest Quality: Reports: Other (mild pain with deep breathe) Improves with: Reports: None Worsens with: Reports: None Associated Symptoms: Reports: Chest Pain, Shortness of Breath. Denies: Confusion, Cough, Diaphoresis, Nausea/Vomiting, Syncope Chest Pain Score (Numeric/FACES): 6 - Related Data Allergies/Adverse Reactions: Allergies Allergy/AdvReac Type Severity Reaction Status Date / Time cefuroxime [From Ceftin] Allergy Severe Diarrhea Verified 02/27/21 07:58 Home Medications: Home Meds Albuterol Sulfate [Proair Hfa] 2 puff INH ASDIRECTED 12/05/20 [History] Citalopram Hydrobromide [Celexa] 20 mg PO DAILY 12/05/20 [History] Fluticasone/Salmeterol [Advair 100-50] 1 - 2 puff INH DAILY 12/05/20 [History] Levothyroxine 75 mcg PO DAILY 12/05/20 [History] Metoprolol Succinate [Toprol XL 100mg] 100 mg PO BID #60 tab.er 12/05/20 [Rx] Nortriptyline 25 mg PO BID 12/05/20 [History] Rivaroxaban [Xarelto] 20 mg PO PCDINNER #30 tablet 12/05/20 [Rx] Past Medical History HEENT History: Reports: Other (See Below) (snoring) Cardiovascular History: Reports: Afib, Arrhythmia, Heart Murmur, SOB on Exertion, Other (See Below). 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 History: Reports: None Psychiatric History: Reports: Depression Endocrine/Metabolic History: Reports: None, Hypothyroidism - Past Surgical History Female Surgical History: Reports: Hysterectomy Social & Family History - Family History Family Medical History: No Pertinent Family History - Tobacco Use Tobacco Use Status *Q: Former Tobacco User Used Tobacco, but Quit: Yes Month/Year Tobacco Last Used: 30+ years ago - Recreational Drug Use Recreational Drug Use: No H&P Review of Systems - Review of Systems: Review Of Systems: See Below General: Reports: No Symptoms HEENT: Reports: No Symptoms Pulmonary: Reports: No Symptoms, Shortness of Breath Cardiovascular: Reports: Chest Pain, Palpitations, Dyspnea on Exertion Gastrointestinal: Reports: No Symptoms Genitourinary: Reports: No Symptoms Musculoskeletal: Reports: No Symptoms Skin: Reports: No Symptoms Psychiatric: Reports: No Symptoms, Depression Neurological: Reports: No Symptoms Hematologic/Lymphatic: Reports: No Symptoms Immunologic: Reports: No Symptoms Exam - Exam Exam: See Below - Vital Signs Vital Signs: Last Vital Signs Temp 36.1 C 02/27/21 07:55 Pulse 89 02/27/21 11:34 Resp 20 02/27/21 11:34 BP 119/77 02/27/21 11:34 Pulse Ox 95 02/27/21 11:34 Weight: 94.619 kg - Exam General: Alert, Oriented, 4 HEENT: PERRLA, Hearing Intact, Mucosa Moist & Welch, Nares Patent, Normal Nasal Septum, Posterior Pharynx Clear, Conjunctiva Clear, EOMI, EACs Clear, TMs Clear Neck: Supple, Trachea Midline, 2 Lungs: Clear to Auscultation, Normal Respiratory Effort Cardiovascular: Regular Rate, Regular Rhythm, Irregular Rhythm, Systolic Murmur (1/6) GI/Abdominal Exam: Normal Bowel Sounds, Soft, Non-Tender, No Organomegaly, No Distention, No Abnormal Bruit, No Mass, Pelvis Stable (Female) Exam: Normal External Exam, Normal Speculum Exam, Normal Bimanual Exam Rectal (Female) Exam: Normal Exam, Normal Rectal Tone Back Exam: Normal Inspection, Full Range of Motion, NT Extremities: Normal Inspection, Normal Range of Motion, Non-Tender, No Pedal Edema, Normal Capillary Refill Skin: Warm, Dry, Intact Neurological: Cranial Nerves Intact, Reflexes Equal Bilateral Neuro Extensive - Mental Status: Alert, Oriented x3, Normal Mood/Affect, Normal Cognition Neuro Extensive - Motor, Sensory, Reflexes: CN II-XII Intact, Normal Gait, Normal Reflexes Psychiatric: Alert, Normal Affect, Normal Mood - Patient Data Lab Results Last 24 hrs: Laboratory Results - last 24 hr 02/27/21 02/27/21 02/27/21 Range/Units 08:15 08:15 10:35 WBC 11.82 H (3.98-10.04) K/mm3 RBC 4.15 (3.98-5.22) M/mm3 Hgb 12.7 (11.2-15.7) gm/dl Hct 40.5 (34.1-44.9) % MCV 97.6 H (79.4-94.8) fl MCH 30.6 (25.6-32.2) pg MCHC 31.4 L (32.2-35.5) g/dl RDW Std Deviation 48.1 H (36.4-46.3) fL Plt Count 268 (182-369) K/mm3 MPV 11.5 (9.4-12.3) fl Neut % (Auto) 70.1 (34.0-71.1) % Lymph % (Auto) 16.8 L (19.3-51.7) % [place] % (Auto) 11.5 (4.7-12.5) % Eos % (Auto) 1.1 (0.7-5.8) Baso % (Auto) 0.3 (0.1-1.2) % Neut # (Auto) 8.29 H (1.56-6.13) K/mm3 Lymph # (Auto) 1.98 (1.18-3.74) K/mm3 [place] # (Auto) 1.36 H (0.24-0.36) K/mm3 Eos # (Auto) 0.13 (0.04-0.36) K/mm3 Baso # (Auto) 0.04 (0.01-0.08) K/mm3 PT (9.7-12.0) SECONDS INR APTT (21.7-31.4) SECONDS D-Dimer, Quantitative (0.19-0.50) mg/L Sodium 139 (136-145) mEq/L Potassium 4.2 (3.5-5.1) mEq/L Chloride 103 (98-107) mEq/L Carbon Dioxide 25 (21-32) mEq/L Anion Gap 15.2 H (5-15) BUN 15 (7-18) mg/dL Creatinine 1.0 (0.55-1.02) mg/dL Est Cr Clr Drug Dosing 47.53 mL/min Estimated GFR (MDRD) 54 (>60) mL/min BUN/Creatinine Ratio 15.0 (14-18) Glucose 125 H (70-99) mg/dL Calcium 9.0 (8.5-10.1) mg/dL Magnesium 1.8 (1.8-2.4) mg/dL Total Bilirubin 0.6 (0.2-1.0) mg/dL AST 19 (15-37) U/L ALT 22 (14-59) U/L Alkaline Phosphatase 75 (46-116) U/L Troponin I < 0.017 (0.00-0.056) ng/mL Total Protein 7.5 (6.4-8.2) g/dl Albumin 3.7 (3.4-5.0) g/dl Globulin 3.8 gm/dL Albumin/Globulin Ratio 1.0 (1-2) SARS-CoV-2 RNA (KYA) Negative (NEGATIVE) 02/27/21 Range/Units 13:02 WBC (3.98-10.04) K/mm3 RBC (3.98-5.22) M/mm3 Hgb (11.2-15.7) gm/dl Hct (34.1-44.9) % MCV (79.4-94.8) fl MCH (25.6-32.2) pg MCHC (32.2-35.5) g/dl RDW Std Deviation (36.4-46.3) fL Plt Count (182-369) K/mm3 MPV (9.4-12.3) fl Neut % (Auto) (34.0-71.1) % Lymph % (Auto) (19.3-51.7) % [place] % (Auto) (4.7-12.5) % Eos % (Auto) (0.7-5.8) Baso % (Auto) (0.1-1.2) % Neut # (Auto) (1.56-6.13) K/mm3 Lymph # (Auto) (1.18-3.74) K/mm3 [place] # (Auto) (0.24-0.36) K/mm3 Eos # (Auto) (0.04-0.36) K/mm3 Baso # (Auto) (0.01-0.08) K/mm3 PT 12.9 H (9.7-12.0) SECONDS INR 1.21 APTT 34.2 H (21.7-31.4) SECONDS D-Dimer, Quantitative 0.27 (0.19-0.50) mg/L Sodium (136-145) mEq/L Potassium (3.5-5.1) mEq/L Chloride (98-107) mEq/L Carbon Dioxide (21-32) mEq/L Anion Gap (5-15) BUN (7-18) mg/dL Creatinine (0.55-1.02) mg/dL Est Cr Clr Drug Dosing mL/min Estimated GFR (MDRD) (>60) mL/min BUN/Creatinine Ratio (14-18) Glucose (70-99) mg/dL Calcium (8.5-10.1) mg/dL Magnesium (1.8-2.4) mg/dL Total Bilirubin (0.2-1.0) mg/dL AST (15-37) U/L ALT (14-59) U/L Alkaline Phosphatase (46-116) U/L Troponin I (0.00-0.056) ng/mL Total Protein (6.4-8.2) g/dl Albumin (3.4-5.0) g/dl Globulin gm/dL Albumin/Globulin Ratio (1-2) SARS-CoV-2 RNA (KYA) (NEGATIVE) Result Diagrams: 02/27/21 08:15 02/27/21 08:15 Sepsis Event Note - Evaluation Sepsis Screening Result: No Definite Risk - Focused Exam Vital Signs: Vital Signs Temp Pulse Pulse Resp BP BP Pulse Ox 02/27/21 11:34 89 20 119/77 95 02/27/21 10:30 97 23 H 132/94 H 94 L 02/27/21 10:07 89 123/73 02/27/21 09:37 85 24 H 120/76 93 L 02/27/21 08:56 85 16 119/64 93 L 02/27/21 07:55 36.1 C 118 H 20 152/110 H 98 Problem List Initiated/Reviewed/Updated: Yes Orders Last 24hrs: Active Orders 24 hr Category Date Time Status Admission Status [Patient Status] [ADT] Routine ADT 02/27/21 10:57 Active Cardiac Monitoring [RC] . DIRECTED Care 02/27/21 08:09 Active EKG Documentation Completion [RC] ASDIRECTED Care 02/27/21 07:52 Active Peripheral IV Care [RC] . DIRECTED Care 02/27/21 08:10 Active Heart Healthy Diet [DIET] Diet 02/27/21 Lunch Active Chest 1V Frontal [CR] Stat Exams 02/27/21 08:10 Taken A1C [GLYCOSYLATED HEMOGLOBIN,HGBA1C] [CHEM] Routine Lab 02/27/21 08:15 Received CKMB [CHEM] Routine Lab 02/27/21 13:02 Received LIPID PANEL [CHEM] Routine Lab 02/27/21 13:02 Received TROPONIN I [CHEM] Routine Lab 02/27/21 13:02 Received TSH [CHEM] Routine Lab 02/27/21 13:02 Received Diltiazem [Cardizem] 100 mg Med 02/27/21 08:15 Active Sodium Chloride 0.9% [Normal Saline] 100 ml IV TITRATE Sodium Chloride 0.9% [Saline Flush] Med 02/27/21 08:09 Active 10 ml FLUSH ASDIRECTED PRN Peripheral IV Insertion Adult [OM.PC] Stat Oth 02/27/21 08:09 Ordered Resuscitation Status Routine Resus Stat 02/27/21 12:11 Ordered EKG 12 Lead [EK] Stat Ther 02/27/21 07:52 Ordered Medication Orders Diltiazem HCl 100 mg/ Sodium (Chloride) 100 mls @ 10 mls/hr IV TITRATE ARACELIS; Protocol Last Titration: 02/27/21 10:42 Dose: 10 mg/hr, 10 mls/hr Documented by: Admin: 02/27/21 08:32 Dose: 10 mg/hr, 10 mls/hr Documented by: LAUREEN Sodium Chloride (Sodium Chloride 0.9% 10 Ml Syringe) 10 ml FLUSH ASDIRECTED PRN PRN Reason: Keep Vein Open Last Admin: 02/27/21 08:36 Dose: 10 ml Documented by: LAUREEN Assessment/Plan Comment:: 02/27/21 assess;plan 1)afib rvr; on cardizem drip and starting oral cardizem and weanoff drip/ repeat tsh and a1c with repeat trop x one. symptoms of atypical chest pain seem more musculoskel than true pleurasy or angina 2)hypertensive cv/heart disease monitor b.p . check nt bnp 3)rule out p.e. atypical 4)control asthma tolerates beta kiel and asthma may be mild copd as ex smoker. 5)rule out non stemi ami boh - Mortality Measure Prognosis:: Good Functional Status: Reports: Pain Controlled - Review of Systems General: Reports: No Symptoms HEENT: Reports: No Symptoms Pulmonary: Reports: No Symptoms Cardiovascular: Reports: No Symptoms Gastrointestinal: Reports: No Symptoms Genitourinary: Reports: No Symptoms Musculoskeletal: Reports: No Symptoms Skin: Reports: No Symptoms Neurological: Reports: No Symptoms Psychiatric: Reports: No Symptoms - Patient Data Vitals - Most Recent: Last Vital Signs Temp 36.3 C 02/28/21 13:08 Pulse 68 02/28/21 08:28 Resp 16 02/28/21 13:08 BP 121/64 02/28/21 13:08 Pulse Ox 95 02/28/21 13:08 Weight - Most Recent: 94.075 kg I&O - Last 24 hours: Intake & Output 02/27/21 02/28/21 02/28/21 22:59 06:59 14:59 Intake Total 600 458 180 Balance 600 458 180 Lab Results - Last 24 hrs: Laboratory Results - last 24 hr 02/27/21 02/27/21 02/27/21 Range/Units 08:15 13:02 13:02 WBC (3.98-10.04) K/mm3 RBC (3.98-5.22) M/mm3 Hgb (11.2-15.7) gm/dl Hct (34.1-44.9) % MCV (79.4-94.8) fl MCH (25.6-32.2) pg MCHC (32.2-35.5) g/dl RDW Std Deviation (36.4-46.3) fL Plt Count (182-369) K/mm3 MPV (9.4-12.3) fl Neut % (Auto) (34.0-71.1) % Lymph % (Auto) (19.3-51.7) % [place] % (Auto) (4.7-12.5) % Eos % (Auto) (0.7-5.8) Baso % (Auto) (0.1-1.2) % Neut # (Auto) (1.56-6.13) K/mm3 Lymph # (Auto) (1.18-3.74) K/mm3 [place] # (Auto) (0.24-0.36) K/mm3 Eos # (Auto) (0.04-0.36) K/mm3 Baso # (Auto) (0.01-0.08) K/mm3 Manual Slide Review PT 12.9 H (9.7-12.0) SECONDS INR 1.21 APTT 34.2 H (21.7-31.4) SECONDS D-Dimer, Quantitative 0.27 (0.19-0.50) mg/L Sodium (136-145) mEq/L Potassium (3.5-5.1) mEq/L Chloride (98-107) mEq/L Carbon Dioxide (21-32) mEq/L Anion Gap (5-15) BUN (7-18) mg/dL Creatinine (0.55-1.02) mg/dL Est Cr Clr Drug Dosing mL/min Estimated GFR (MDRD) (>60) mL/min BUN/Creatinine Ratio (14-18) Glucose (70-99) mg/dL Hemoglobin A1c 6.3 H ( - 5.6) % Calcium (8.5-10.1) mg/dL Magnesium (1.8-2.4) mg/dL Total Bilirubin (0.2-1.0) mg/dL AST (15-37) U/L ALT (14-59) U/L Alkaline Phosphatase (46-116) U/L CK-MB (CK-2) 0.5 (0-3.6) ng/ml Troponin I < 0.017 (0.00-0.056) ng/mL Total Protein (6.4-8.2) g/dl Albumin (3.4-5.0) g/dl Globulin gm/dL Albumin/Globulin Ratio (1-2) Triglycerides 58 (<150) mg/dL Cholesterol 147 (<200) mg/dL LDL Cholesterol Direct 74 (<100) mg/dL HDL Cholesterol 60.0 H (40-59) mg/dL TSH 3rd Generation 1.664 (0.358-3.74) uIU/mL 02/28/21 02/28/21 Range/Units 05:01 05:01 WBC 8.92 (3.98-10.04) K/mm3 RBC 3.79 L (3.98-5.22) M/mm3 Hgb 11.5 (11.2-15.7) gm/dl Hct 37.2 (34.1-44.9) % MCV 98.2 H (79.4-94.8) fl MCH 30.3 (25.6-32.2) pg MCHC 30.9 L (32.2-35.5) g/dl RDW Std Deviation 47.9 H (36.4-46.3) fL Plt Count 218 (182-369) K/mm3 MPV 11.2 (9.4-12.3) fl Neut % (Auto) 51.3 (34.0-71.1) % Lymph % (Auto) 29.6 (19.3-51.7) % [place] % (Auto) 17.0 H (4.7-12.5) % Eos % (Auto) 1.5 (0.7-5.8) Baso % (Auto) 0.4 (0.1-1.2) % Neut # (Auto) 4.57 (1.56-6.13) K/mm3 Lymph # (Auto) 2.64 (1.18-3.74) K/mm3 [place] # (Auto) 1.52 H (0.24-0.36) K/mm3 Eos # (Auto) 0.13 (0.04-0.36) K/mm3 Baso # (Auto) 0.04 (0.01-0.08) K/mm3 Manual Slide Review Abnormal smear PT (9.7-12.0) SECONDS INR APTT (21.7-31.4) SECONDS D-Dimer, Quantitative (0.19-0.50) mg/L Sodium 141 (136-145) mEq/L Potassium 4.0 (3.5-5.1) mEq/L Chloride 106 (98-107) mEq/L Carbon Dioxide 25 (21-32) mEq/L Anion Gap 14.0 (5-15) BUN 16 (7-18) mg/dL Creatinine 1.0 (0.55-1.02) mg/dL Est Cr Clr Drug Dosing 47.53 mL/min Estimated GFR (MDRD) 54 (>60) mL/min BUN/Creatinine Ratio 16.0 (14-18) Glucose 118 H (70-99) mg/dL Hemoglobin A1c ( - 5.6) % Calcium 8.9 (8.5-10.1) mg/dL Magnesium 1.8 (1.8-2.4) mg/dL Total Bilirubin 0.6 (0.2-1.0) mg/dL AST 23 (15-37) U/L ALT 24 (14-59) U/L Alkaline Phosphatase 69 (46-116) U/L CK-MB (CK-2) (0-3.6) ng/ml Troponin I (0.00-0.056) ng/mL Total Protein 6.6 (6.4-8.2) g/dl Albumin 3.1 L (3.4-5.0) g/dl Globulin 3.5 gm/dL Albumin/Globulin Ratio 0.9 L (1-2) Triglycerides (<150) mg/dL Cholesterol (<200) mg/dL LDL Cholesterol Direct (<100) mg/dL HDL Cholesterol (40-59) mg/dL TSH 3rd Generation (0.358-3.74) uIU/mL Med Orders - Current: Current Medications Albuterol (Albuterol 6.7 Gm Inhaler) 6.7 gm INH Q6HR PRN PRN Reason: Dyspnea Last Admin: 02/27/21 21:11 Dose: 2 puff Documented by: Citalopram Hydrobromide (Citalopram 10 Mg Tab) 10 mg PO DAILY ARACELIS Last Admin: 02/28/21 08:28 Dose: 10 mg Documented by: Diltiazem HCl 100 mg/ Sodium (Chloride) 100 mls @ 10 mls/hr IV TITRATE [facility]; Protocol Last Titration: 02/27/21 16:15 Dose: 5 mg/hr, 5 mls/hr Documented by: Levothyroxine Sodium (Levothyroxine 75 Mcg Tab) 75 mcg PO ACBREAKFAST [facility] Last Admin: 02/28/21 06:34 Dose: 75 mcg Documented by: Metoprolol Succinate (Metoprolol Succinate 50 Mg Tab.Er) 100 mg PO BID [facility] Last Admin: 02/28/21 08:28 Dose: 100 mg Documented by: Nortriptyline HCl (Nortriptyline 25 Mg Cap) 25 mg PO BID [facility] Last Admin: 02/28/21 08:28 Dose: 25 mg Documented by: Rivaroxaban (Rivaroxaban 10 Mg Tab) 20 mg PO PCDINNER [facility] Last Admin: 02/27/21 18:22 Dose: 20 mg Documented by: Sodium Chloride (Sodium Chloride 0.9% 10 Ml Syringe) 10 ml FLUSH ASDIRECTED PRN PRN Reason: Keep Vein Open Last Admin: 02/27/21 08:36 Dose: 10 ml Documented by: Sodium Chloride (Sodium Chloride 0.9% 10 Ml Syringe) 10 ml FLUSH ASDIRECTED PRN PRN Reason: Keep Vein Open Discontinued Medications Albuterol (Albuterol 6.7 Gm Inhaler) 0 gm INH ASDIRECTED [facility] Aspirin (Aspirin 81 Mg Tab.Chew) 324 mg PO ONETIME ONE Stop: 02/27/21 10:36 Last Admin: 02/27/21 10:41 Dose: 324 mg Documented by: Citalopram Hydrobromide (Citalopram 20 Mg Tab) 20 mg PO DAILY [facility] Diltiazem HCl (Diltiazem 50 Mg/10 Ml Sdv) 10 mg IVPUSH ONETIME ONE Stop: 02/27/21 08:11 Last Admin: 02/27/21 08:32 Dose: 10 mg Documented by: Diltiazem HCl (Diltiazem 180 Mg Cap.Cd) 180 mg PO ONETIME ONE Stop: 02/27/21 13:50 Last Admin: 02/27/21 14:32 Dose: 180 mg Documented by: Metoprolol Tartrate (Metoprolol Tartrate 50 Mg Tab) 50 mg PO ONETIME ONE Stop: 02/27/21 10:01 Last Admin: 02/27/21 10:07 Dose: 50 mg Documented by: - Exam General: Reports: Alert, Oriented HEENT: Reports: Pupils Equal, Pupils Reactive, EOMI, Mucous Membr. Moist/[place] Neck: Reports: Supple Lungs: Reports: Clear to Auscultation, Normal Respiratory Effort Cardiovascular: Reports: Regular Rate, Irregular Rhythm. Denies: Regular Rhythm GI/Abdominal Exam: Normal Bowel Sounds, Soft, Non-Tender, No Organomegaly, No Distention, No Abnormal Bruit, No Mass, Pelvis Stable (Female) Exam: Normal External Exam, Normal Speculum Exam, Normal Bimanual Exam Rectal (Female) Exam: Normal Exam, Normal Rectal Tone Back Exam: Reports: Normal Inspection, Full Range of Motion Extremities: Normal Inspection, Normal Range of Motion, Non-Tender, No Pedal Edema, Normal Capillary Refill Skin: Reports: Warm, Dry, Intact Wound/Incisions: Reports: Healing Well Neurological: Reports: No New Focal Deficit Psy/Mental Status: Reports: Alert, Normal Affect, Normal Mood
--- NOTE | 2021-03-01 11:21 | CR ---
Chest: Portable view of the chest was obtained. Comparison: Prior chest x-ray of 12/05/20. Heart is felt to be slightly enlarged. Elevated right hemidiaphragm is seen which appears stable. Lungs are clear with no acute parenchymal change. No acute osseous abnormality is appreciated. Impression: 1. Findings as noted above which are stable from prior chest x-ray. 2. Nothing acute is appreciated. Diagnostic code #2
== END 2021-02-28 15:00 | disposition home or self-care (01) | DRG 310 ==
LOC: JD.ED 07:45 → JD.ICU 10:57
PROVIDERS: ADMIT Pediatrics; ATTEND Pediatrics
DX: I48.91 Unspecified atrial fibrillation (principal); R07.89 Other chest pain; I10 Essential (primary) hypertension; F32.9 Major depressive disorder, single episode, unspecified; J45.909 Unspecified asthma, uncomplicated; Z90.81 Acquired absence of spleen; E03.9 Hypothyroidism, unspecified; I49.9 Cardiac arrhythmia, unspecified; Z20.822 Contact with and (suspected) exposure to COVID-19; I47.1 Supraventricular tachycardia; Z79.890 Hormone replacement therapy; Z88.1 Allergy status to other antibiotic agents; Z79.899 Other long term (current) drug therapy; Z90.710 Acquired absence of both cervix and uterus; Z87.891 Personal history of nicotine dependence; Z79.01 Long term (current) use of anticoagulants
CPT/HCPCS: 36415; 71045; 80053; 83036; 83735; 84484; 85025; 93005; A9270 ×2; J3490 ×2; U0002; 80061; 82553; 84443; 85379; 85610; 85730; 93010; 94640; 96365; 96376; 99284; 99285-25

== ENCOUNTER 2021-03-01 05:55 | Emergency (ER) | payer MEDICARE, MEDICAID ==
--- NOTE | 2021-03-01 06:11 | EDM.PDOC ---
<Ciro Lanier - Last Filed: 03/01/21 07:47> ED HPI GENERAL MEDICAL PROBLEM - General Chief Complaint: Cardiovascular Problem Stated Complaint: CHEST PAIN Time Seen by Provider: 03/01/21 06:10 - History of Present Illness INITIAL COMMENTS - FREE TEXT/NARRATIVE: 75-year-old female presents the emergency room with palpitations and chest discomfort. Patient recently diagnosed with A. fib back in November. She was seen here several days ago in A. fib with rapid ventricular response ultimately she was admitted and kept on a diltiazem drip. She was discharged yesterday the . Last night around 1130 she felt the palpitations returned and had increasing chest tightness and discomfort. Patient presents to the emergency room this morning for evaluation. At this time she is denying any significant breathing difficulties however gets easily winded with any sort of activity. She states this has been the case ever since the A. fib diagnosis back in November she has not had any nausea or upset stomach with the symptoms. The patient has a history of SVT and her last stress test was with the evaluation of this back in 2002. Chest Pain Score (Numeric/FACES): 8 - Related Data Allergies Allergy/AdvReac Type Severity Reaction Status Date / Time cefuroxime [From Ceftin] Allergy Severe Diarrhea Verified 03/01/21 06:04 Home Meds: Home Meds Citalopram Hydrobromide [Celexa] 10 mg PO DAILY 12/05/20 [History] Fluticasone/Salmeterol [Advair 100-50] 1 - 2 puff INH DAILY 12/05/20 [History] Levothyroxine 75 mcg PO DAILY 12/05/20 [History] Nortriptyline 25 mg PO BID 12/05/20 [History] Rivaroxaban [Xarelto] 20 mg PO PCDINNER #30 tablet 12/05/20 [Rx] Citalopram [Citalopram HBr] 10 mg PO DAILY tablet 02/28/21 [Rx] Metoprolol Tartrate 100 mg PO BID #60 tablet 02/28/21 [Rx] dilTIAZem HCL [Diltiazem 24Hr ER] 120 mg PO DAILY #30 cap.er.24h 02/28/21 [Rx] Past Medical History HEENT History: Reports: Other (See Below) (snoring) Cardiovascular History: Reports: Afib, Arrhythmia, Heart Murmur, SOB on Exertion, Other (See Below). Denies: Bacterial Endocarditis, Blood Clots/VTE/DVT, CAD, Cardiomyopathy, Congenital Septal Defect, Heart Failure, Syncope Other Cardiovascular History: SVT Respiratory History: Reports: Asthma Gastrointestinal History: Reports: Other (See Below) Other Gastrointestinal History: spleenectomy DATA CONTROL ASSISTANT History: Reports: None Musculoskeletal History: Reports: None Psychiatric History: Reports: Depression Endocrine/Metabolic History: Reports: None, Hypothyroidism - Past Surgical History Female Surgical History: Reports: Hysterectomy Social & Family History - Family History Family Medical History: No Pertinent Family History ED ROS GENERAL - Review of Systems Review Of Systems: See Below Constitutional: Reports: No Symptoms HEENT: Reports: No Symptoms Respiratory: Reports: Shortness of Breath Cardiovascular: Reports: Chest Pain, Palpitations Endocrine: Reports: No Symptoms GI/Abdominal: Reports: No Symptoms : Reports: No Symptoms Musculoskeletal: Reports: No Symptoms Skin: Reports: No Symptoms Neurological: Reports: No Symptoms Psychiatric: Reports: No Symptoms ED EXAM, GENERAL - Physical Exam Exam: See Below Exam Limited By: No Limitations General Appearance: Alert, No Apparent Distress Head: Atraumatic, Normocephalic Neck: Normal Inspection, Supple, Non-Tender, Full Range of Motion, Other (No JVD). No: Lymphadenopathy (L), Lymphadenopathy (R) Respiratory/Chest: No Respiratory Distress, Lungs Clear, Normal Breath Sounds Cardiovascular: No Edema, Tachycardia (Variable tachycardia 110-140), Irregularly Irregular GI/Abdominal: Normal Bowel Sounds, Soft, Non-Tender Neurological: Alert, Oriented, Normal Cognition #1 Interpretation EKG Date: 03/01/21 Rhythm: A-Fib Rate (Beats/Min): 131 [place]: Normal QRS: Normal ST-T: Normal QT: Normal Comparison: No Change (No Significant change from 12/05/2020) Course - Re-Assessments/Exams Free Text/Narrative Re-Assessment/Exam: 03/01/21 07:34 At this time is change of shift further care and disposition per Dr. Casillas Departure - Departure Disposition: Home, Self-Care 01 Clinical Impression: Atrial fibrillation with RVR, Atypical chest pain Instructions: Atrial Fibrillation, [id number] Referrals: Hodan Berman PA-C [Primary Care Provider] - Forms: ED Department Discharge Additional Instructions: Rest today, drink plenty of water to maintain hydration. Continue metropolol and diltiazem as prescribed. Check your heart rate and BP about every 4 hours today, keep a log to bring to your [facility] tomorrow. Call or return to ED as needed. Sepsis Event Note (ED) - Evaluation Sepsis Screening Result: No Definite Risk <Prem Casillas - Last Filed: 03/01/21 17:08> Course - Vital Signs Last Recorded V/S: Last Vital Signs Temp 96.8 F L 03/01/21 06:04 Pulse 113 H 03/01/21 07:54 Resp 24 H 03/01/21 06:04 BP 111/71 03/01/21 07:54 Pulse Ox 94 L 03/01/21 06:04 - Orders/Labs/Meds Labs: Laboratory Tests 03/01/21 03/01/21 03/01/21 Range/Units 06:08 06:08 08:45 WBC 14.97 H (3.98-10.04) K/mm3 RBC 4.22 (3.98-5.22) M/mm3 Hgb 12.9 (11.2-15.7) gm/dl Hct 41.1 (34.1-44.9) % MCV 97.4 H (79.4-94.8) fl MCH 30.6 (25.6-32.2) pg MCHC 31.4 L (32.2-35.5) g/dl RDW Std Deviation 47.5 H (36.4-46.3) fL Plt Count 266 (182-369) K/mm3 MPV 11.9 (9.4-12.3) fl Neut % (Auto) 71.8 H (34.0-71.1) % Lymph % (Auto) 15.2 L (19.3-51.7) % [place] % (Auto) 12.2 (4.7-12.5) % Eos % (Auto) 0.3 L (0.7-5.8) Baso % (Auto) 0.3 (0.1-1.2) % Neut # (Auto) 10.76 H (1.56-6.13) K/mm3 Lymph # (Auto) 2.27 (1.18-3.74) K/mm3 [place] # (Auto) 1.83 H (0.24-0.36) K/mm3 Eos # (Auto) 0.04 (0.04-0.36) K/mm3 Baso # (Auto) 0.04 (0.01-0.08) K/mm3 Manual Slide Review Normal smear Sodium 138 (136-145) mEq/L Potassium 4.4 (3.5-5.1) mEq/L Chloride 101 (98-107) mEq/L Carbon Dioxide 23 (21-32) mEq/L Anion Gap 18.4 H (5-15) BUN 19 H (7-18) mg/dL Creatinine 1.1 H (0.55-1.02) mg/dL Est Cr Clr Drug Dosing 43.20 mL/min Estimated GFR (MDRD) 48 (>60) mL/min BUN/Creatinine Ratio 17.3 (14-18) Glucose 152 H (70-99) mg/dL Calcium 9.3 (8.5-10.1) mg/dL Magnesium 1.7 L (1.8-2.4) mg/dL Total Bilirubin 0.7 (0.2-1.0) mg/dL AST 26 (15-37) U/L ALT 28 (14-59) U/L Alkaline Phosphatase 83 (46-116) U/L Troponin I < 0.017 < 0.017 (0.00-0.056) ng/mL Total Protein 8.0 (6.4-8.2) g/dl Albumin 3.7 (3.4-5.0) g/dl Globulin 4.3 gm/dL Albumin/Globulin Ratio 0.9 L (1-2) Meds: Medications Discontinued Medications Generic Name Dose Route Start Last Admin Trade Name Freq PRN Reason Stop Dose Admin Acetaminophen 975 mg 03/01/21 10:06 03/01/21 10:21 Acetaminophen 325 Mg Tab PO 03/01/21 10:07 975 mg NOW ONE Administration Diltiazem HCl 20 mg 03/01/21 06:17 03/01/21 06:25 Diltiazem 50 Mg/10 Ml Sdv IVPUSH 03/01/21 06:18 20 mg ONETIME ONE Administration Diltiazem HCl 120 mg 03/01/21 07:37 03/01/21 07:54 Diltiazem 120 Mg Cap.Cd PO 03/01/21 07:38 120 mg ONETIME ONE Administration Fentanyl 25 mcg 03/01/21 06:52 03/01/21 06:59 Fentanyl 100 Mcg/2 Ml Sdv IVPUSH 03/01/21 06:53 25 mcg ONETIME ONE Administration Metoprolol Tartrate 100 mg 03/01/21 07:39 03/01/21 07:54 Metoprolol Tartrate 50 Mg Tab PO 03/01/21 07:40 100 mg ONETIME ONE Administration - Re-Assessments/Exams Free Text/Narrative Re-Assessment/Exam: 03/01/21 07:50. Have assumed care from Dr Lanier after change of shift. I agree with his hx and exam as documented. Iniial labs, CXR are fine. Will repeat a 2 hr trop. Rate has come down to 90's and low 100's with diltiazam 10 mg IV times 2. She had not taken her AM meds prior to coming in so will give those now. 03/01/21 10:08 Repeat trop. nl, rated has been running 100 to 110 range. She just had her first dose of dilltiazam yesterday, gave 2nd dose her about 90 minutes ago. It is going to take a few dose to reach full equilibrium. Have discussed this with patient. She see's Cardiology tomorrow in [place]. Discharge instr. as documented. Departure - Departure Time of Disposition: 10:11 Condition: Fair Sepsis Event Note (ED) - Focused Exam Vital Signs: Vital Signs Temp Pulse Pulse Resp BP BP Pulse Ox 03/01/21 07:54 113 H 111/71 03/01/21 06:04 96.8 F L 144 H 24 H 134/97 H 94 L
[2021-03-01] MEDS ORDERED: Diltiazem 50 MG/10 ML SDV IVPUSH ONE (06:17)
[2021-03-01] MEDS ORDERED: fentaNYL 100 MCG/2 ML SDV IVPUSH ONE (06:52)
[2021-03-01] MEDS ORDERED: Diltiazem 120 MG Cap.CD PO ONE (07:37)
[2021-03-01] MEDS ORDERED: Metoprolol Tartrate 50 MG Tab PO ONE (07:39)
[2021-03-01] MEDS ORDERED: Acetaminophen 325 MG Tab PO ONE (10:06)
== END 2021-03-01 10:20 | disposition home or self-care (01) ==
LOC: JD.ED 05:55
DX: I48.91 Unspecified atrial fibrillation (principal); I25.10 Atherosclerotic heart disease of native coronary artery without angina pectoris; I50.9 Heart failure, unspecified; J45.909 Unspecified asthma, uncomplicated; E03.9 Hypothyroidism, unspecified; Z79.01 Long term (current) use of anticoagulants; Z79.899 Other long term (current) drug therapy; Z88.1 Allergy status to other antibiotic agents
CPT/HCPCS: 36415; 80053; 83735; 84484; 85025; 93005; 96374; 96375; 99285; A9270; J3010; J3490; 93010; 99284

== ENCOUNTER 2024-04-24 15:30 | Emergency (ER) | payer MEDICARE, MEDICAID ==
[2024-04-24] MEDS: Tranexamic Acid 1,000 MG/10 ML Vial TOP ONE (16:03)
[2024-04-24] MEDS: Lidocaine 1% with EPINEPHrine 1:100,000 20 ML MDV ONE (16:55)
[2024-04-24] MEDS: Lidocaine 1% with EPINEPHrine 1:100,000 10 ML MDV INJECT ONE (17:23)
== END 2024-04-24 17:20 | disposition home or self-care (01) ==
LOC: JD.ED 15:30
DX: S01.512A Laceration without foreign body of oral cavity, initial encounter (principal); J45.909 Unspecified asthma, uncomplicated; E03.9 Hypothyroidism, unspecified; Z88.8 Allergy status to other drugs, medicaments and biological substances; Z79.82 Long term (current) use of aspirin; Z79.890 Hormone replacement therapy; Z79.899 Other long term (current) drug therapy; Z86.16 Personal history of COVID-19; Z90.710 Acquired absence of both cervix and uterus; W26.8XXA Contact with other sharp object(s), not elsewhere classified, initial encounter
CPT/HCPCS: 99282; J3490

== ENCOUNTER 2024-11-15 14:41 | Emergency (ER) | payer MEDICARE, MEDICAID | END 2024-11-15 16:14 | disposition home or self-care (01) | LOC: JD.ED 14:41 | DX: S60.221A Contusion of right hand, initial encounter (principal); I48.91 Unspecified atrial fibrillation; E03.9 Hypothyroidism, unspecified; Z88.8 Allergy status to other drugs, medicaments and biological substances; Z79.890 Hormone replacement therapy; Z79.82 Long term (current) use of aspirin; Z79.899 Other long term (current) drug therapy; Z86.16 Personal history of COVID-19; Z79.01 Long term (current) use of anticoagulants; Z90.710 Acquired absence of both cervix and uterus; W19.XXXA Unspecified fall, initial encounter; Y93.89 Activity, other specified | CPT/HCPCS: 71101-26-RT; 71101-RT; 99283 ==